=== PATIENT | female | born 1940 | race Caucasian/White ===

== ENCOUNTER → 2024-10-25 | Outpatient (CLI) | payer OTHER, MEDICAID, SELFPAY ==
[2024-10-25 09:32] LABS: Basophils % (Auto) 1 % (0-2.5); Eosinophils # (Auto) 0.1 Thou/mm3 (0.0-0.5); Eosinophils % (Auto) 2 % (0-10); Hematocrit 30.4 % (36.0-46.0); Immature Granulocytes % (Auto) 1 % (0-0); Immature Granulocytes Auto 0.05 Thou/mm3 (0.00-0.00); Lymphocytes # (Auto) 1.5 Thou/mm3 (1.0-4.8); Lymphocytes % (Auto) 19 % (10-50); Mean Corpuscular HGB Conc 32.9 g/dl (31.0-37.0); Mean Corpuscular Hemoglobin 29.2 pg (25.0-35.0); Mean Corpuscular Volume 89 fL (80-100); Monocytes # (Auto) 0.6 Thou/mm3 (0.0-0.8); Monocytes % (Auto) 8 % (0-12); Neutrophils # (Auto) 5.5 Thou/mm3 (1.8-7.7); Neutrophils % (Auto) 70 % (37-80); Nucleated Red Blood Cell % 0 /100 WBC (0); Platelet Count 186 Thou/mm3 (140-440); RDW Standard Deviation 45.5 fL (36.4-46.3); Red Blood Count 3.42 Miln/mm3 (4.00-5.20); White Blood Count 7.8 Thou/mm3 (3.6-11.0)
[2024-10-25 09:39] LABS: Glucose Estimated Average 103 mg/dL (80-131); Hemoglobin A1C 5.2 % Hgb (4.8-6.0)
[2024-10-25 09:53] LABS: Vitamin D 25 Hydroxy Total 48.9 ng/mL (7.3-40.2)
[2024-10-25 09:57] LABS: Alanine Aminotransferase 11 U/L (10-49); Albumin, Serum 3.7 gm/dL (3.4-4.8); Albumin/Globulin Ratio 1.3 (1.2-2.2); Alkaline Phosphatase 89 U/L (46-116); Anion Gap 12 (7-16); Aspartate Amino Transferase 20 U/L (0-34); BUN/Creatinine Ratio 15 Ratio (12-20); Bilirubin,Total 0.3 mg/dL (0.3-1.2); Blood Urea Nitrogen 34 mg/dL (9-23); Calcium 8.3 mg/dL (8.3-10.6); Calcium (Corrected) 8.5 mg/dL (8.5-10.1); Carbon Dioxide 20.6 mMol/L (20.0-31.0); Cardiac Risk Estimate 3.1 RATIO (3.7-5.6); Chloride 106 mMol/L (98-107); Cholesterol 132 mg/dL (132-200); Creatinine (Component) 2.3 mg/dL (0.6-1.3); Free T4 (Free Thyroxine) 1.35 ng/dL (0.89-1.76); Globulin 2.8 gm/dL (2.3-3.5); Glucose 104 mg/dL (74-106); HDL Cholesterol 42 mg/dL (40-60); LDL Cholesterol,Calculated 61 mg/dL (0-130); Osmolality,Calculated 285 (275-295); Potassium 4.4 mMol/L (3.4-5.1); Sodium 139 mMol/L (136-145); Total Protein 6.5 gm/dL (5.7-8.2); Triglycerides 143 mg/dL (30-150); eGFR 20 See Note
== END | disposition home or self-care (01) ==
PROVIDERS: PCP Internal Medicine; Referring Provider Internal Medicine; Visit Provider Internal Medicine
DX: Z00.00 Encounter for general adult medical examination without abnormal findings (principal); E55.9 Vitamin D deficiency, unspecified
CPT/HCPCS: 36415; 80053; 80061; 82306; 83036; 84439; 84443; 85025

== ENCOUNTER → 2025-02-12 | Outpatient (CLI) | payer OTHER, MEDICAID, SELFPAY ==
[2025-02-12 12:21] LABS: Basophils # (Auto) 0.0 Thou/mm3 (0.0-0.2); Basophils % (Auto) 1 % (0-2.5); Eosinophils # (Auto) 0.1 Thou/mm3 (0.0-0.5); Eosinophils % (Auto) 1 % (0-10); Hematocrit 30.2 % (36.0-46.0); Hemoglobin 9.9 g/dL (12.0-16.0); Immature Granulocytes Auto 0.03 Thou/mm3 (0.00-0.00); Lymphocytes # (Auto) 1.2 Thou/mm3 (1.0-4.8); Lymphocytes % (Auto) 17 % (10-50); Mean Corpuscular HGB Conc 32.8 g/dl (31.0-37.0); Mean Corpuscular Hemoglobin 30.2 pg (25.0-35.0); Mean Corpuscular Volume 92 fL (80-100); Monocytes # (Auto) 0.7 Thou/mm3 (0.0-0.8); Monocytes % (Auto) 10 % (0-12); Neutrophils # (Auto) 5.1 Thou/mm3 (1.8-7.7); Neutrophils % (Auto) 72 % (37-80); Nucleated Red Blood Cell # 0.00 Thou/mm3 (0.00-0.00); Nucleated Red Blood Cell % 0 /100 WBC (0); Platelet Count 198 Thou/mm3 (140-440); RDW Standard Deviation 43.2 fL (36.4-46.3); Red Blood Count 3.28 Miln/mm3 (4.00-5.20); White Blood Count 7.2 Thou/mm3 (3.6-11.0)
[2025-02-12 12:37] LABS: Anion Gap 12 (7-16); BUN/Creatinine Ratio 11 Ratio (12-20); Blood Urea Nitrogen 42 mg/dL (9-23); Calcium 9.7 mg/dL (8.3-10.6); Carbon Dioxide 24.3 mMol/L (20.0-31.0); Chloride 100 mMol/L (98-107); Creatinine (Component) 3.9 mg/dL (0.6-1.3); Glucose 114 mg/dL (74-106); Osmolality,Calculated 283 (275-295); Potassium 4.7 mMol/L (3.4-5.1); Sodium 136 mMol/L (136-145); eGFR 11 See Note
[2025-02-12 12:40] LABS: INR 1.0 (0.9-1.3); Partial Thromboplastin Time 27.9 Seconds (22.0-36.0); Prothrombin Time 11.3 Seconds (9.0-12.2)
== END | disposition home or self-care (01) ==
LOC: COPL 11:04
PROVIDERS: PCP Internal Medicine; Referring Provider Internal Medicine; Visit Provider Internal Medicine
DX: I25.10 Atherosclerotic heart disease of native coronary artery without angina pectoris (principal); I48.91 Unspecified atrial fibrillation
CPT/HCPCS: 36415; 80048; 85025; 85610; 85730

== ENCOUNTER 2025-03-23 00:59 | Emergency (ER) | payer OTHER, MEDICAID, SELFPAY ==
[2025-03-23] VITALS (10 sets, daily range): BP systolic 149–213; BP diastolic 55–80; PULSE 65–82; RESP 15–20; TEMP 36.4–36.5; O2SAT 93–100; BMI 31.1
--- NOTE | 2025-03-23 01:33 | EKG_ITS ---
[facility] Test Date: 2025-03-23 Pat Name: EMILIO WISE Department: Room: - Gender: Female Nuclear Physicist: : 1940 Requested By: Andi Campbell Order Number: [id number] Reading MD: Andi Campbell Measurements Intervals [place] Rate: 78 P: 47 [place]: 204 QRS: -66 QRSD: 155 T: 76 QT: 453 QTc: 518 Interpretive Statements ELECTRONIC VENTRICULAR PACEMAKER ABNORMAL RHYTHM ECG Compared to ECG 07/23/2023 11:10:54 No significant changes /store/S0/[id number].pdf
--- NOTE | 2025-03-23 01:59 | EDNOTE_ITS ---
ED Weakness RME/HPI General Chief complaint: Altered Mental Status Stated complaint: ELEVATED BLOOD PRESSURE, WEAKNESS, CONFUSION Time Seen by Provider: 03/23/25 01:59 Arrival date/time: 03/23/25 00:59 RME / HPI RME / HPI Narrative: See MDM for Dr. Page's HPI documentation. Related Data Home Medications ?Medication ?Instructions ?Recorded ?Confirmed atorvastatin 20 mg tablet 20 mg PO HS 07/22/23 5 hydralazine 50 mg tablet 50 mg PO TID 07/22/23 carvedilol 25 mg tablet 25 mg PO BID 07/23/23 clonidine HCl 0.1 mg tablet 0.1 mg PO Q12H PRN hyperte nsive 03/23/25 03/23/25 emergency ferrous sulfate 325 mg (65 mg 325 mg PO QDAY 03/23/25 03/23/25 iron) tablet (Iron (ferrous sulfate)) magnesium 200 mg tablet 400 mg PO QDAY 03/23/2512/10 Previous Rx's ?Medication ?Instructions ?Recorded albuterol sulfate 90 mcg/actuation 2 puff inhalation Q 6H PRN 03/23/25 aerosol inhaler shortness of breath or wheez ing #1 unit cefdinir 300 mg capsule 300 mg PO DAILY 7 days #7 ca ps 03/23/25 clonidine HCl 0.1 mg tablet 0.1 mg PO BID #60 tabs 12/10 omeprazole 40 mg capsule,delayed 40 mg PO QDAY #30 cap s 03/23/25 release ondansetron 4 mg disintegrating 4 mg PO TID PRN nausea and 03/23/25 tablet vomiting 30 days #30 tabs prednisone 50 mg tablet 50 mg PO QDAY #3 tabs Allergies Allergy/AdvReac Type Severity Reaction Status Date / Time codeine Allergy Verified 03/23/25 01:01 Penicillins Allergy Verified 03/23/25 01:01 Review of Systems Review of Systems Systems Reviewed: All systems reviewed, normal except as documented Past Medical History Past Medical History CARDIAC: Positive Hypercholesterolemia and Hypertension; Negative Congestive Heart Failure RESPIRATORY: Negative Chronic Obstructive Pulmonary Disease (COPD) GENITOURINARY: Negative Renal Disease ENDOCRINE: Negative Diabetes Mellitus Type 1 or Diabetes Mellitus Type 2 Surgical History SURGICAL: Positive Open Heart Surgery, Valve Replacement and Carotid Endarterectomy Social History SMOKING STATUS: Never smoker SUBSTANCE USE: does not use ED Exam Narrative Physical exam: See [facility] for Dr. Page's physical exam documentation. Course Quality Measures none Orders Category Date Time Status Bedside COVID-19 Antigen Test NOW Care 03/23/25 02:17 Completed Bedside Influenza A&B Antigen Test NOW Care 03/23/25 02:17 Completed EKG (ED ONLY) *Do not use* NOW Care 03/23/25 01:33 Completed Saline [Insert IV] NOW Care 03/23/25 02:17 Completed Straight [In and Out Catheter] X1 Care 03/23/25 02:17 Completed Referral Respiratory Therapy Stat Cons 03/23/25 04:[address] chest abdomen pelvis wo Stat Exams 03/23/25 02:[address] head/brain wo con Stat Exams 03/23/25 02:20 Completed EKG (ED Only) Stat Exams 03/23/25 01:33 Draft US abdomen limited Stat Exams 03/23/25 02:20 Completed XR chest 1V portable Stat Exams 03/23/25 02:19 Completed Amylase Stat Lab 03/23/25 02:48 Completed BNP [B-Type Natriuretic Peptide] Stat Lab 03/23/25 02:48 Completed Beta Hydroxybutyrate Stat Lab 03/23/25 02:48 Completed Bilirubin,Direct Stat Lab 03/23/25 02:48 Completed Blood Culture (Lab) Stat Lab 03/23/25 02:48 Results CBC Stat Lab 03/23/25 02:48 Completed CMP [Comprehensive Metabolic Panel] Stat Lab 03/23/25 02:48 Completed CRP [C-Reactive Protein] Stat Lab 03/23/25 02:48 Completed ESR [Sed Rate (ESR)] Stat Lab 03/23/25 02:48 Completed Lactate (Lactic Acid) Stat Lab 03/23/25 02:48 Completed Lipase Stat Lab 03/23/25 02:48 Completed Magnesium Stat Lab 03/23/25 02:48 Completed Procalcitonin Stat Lab 03/23/25 02:48 Completed TSH [Thyroid Stimulating Hormone] Stat Lab 03/23/25 02:48 Completed Troponin I Stat Lab 03/23/25 02:48 Completed UA, C/S IF [Urinalysis, C/S if Indicated] Stat Lab 03/23/25 04:15 Completed Albuterol/Ipratr Rt Elaine [Duoneb Rt Elaine] Med 03/23/25 04:50 Discontinued 3 ml INH X1 ONE Azithromycin Po [Zithromax PO] Med 03/23/25 04:50 Discontinued 500 mg PO X1 ONE Magnesium Sulfate 2 GM Ivpb [Magnesium Sulfate Ivpb] Med 03/23/25 04:41 Discontinued 2 gm in 50 ml IV X1 MethylPREDNISolone.* [SoluMEDROL Inj] Med 03/23/25 04:50 Discontinued 125 mg IVP X1 ONE Metoprolol Tartrate [Lopressor] Med 03/23/25 02:02 Discontinued 25 mg PO X1 ONE Ondansetron Inj [Zofran Inj] Med 03/23/25 02:19 Discontinued 4 mg IVP X1 ONE Sodium Chloride 0.9% 1000 ml [Ns] 1,000 ml Med 03/23/25 02:19 Discontinued IV 999 mls/hr cefTRIAXone/D5w 1gm IV premix [Rocephin/D5w 1gm IV Med 03/23/25 04:50 Discontinued premix] 1 gm in 50 ml IV X1 cloNIDine HCL [Catapres] Med 03/23/25 02:02 Discontinued 0.1 mg PO X1 ONE cloNIDine HCL [Catapres] Med 03/23/25 02:34 Discontinued 0.2 mg PO X1 ONE Vital Signs Vital signs: Vital Signs Temperature 97.5 F 03/23/25 01:17 Pulse Rate 80 03/23/25 01:17 Respiratory Rate 17 03/23/25 01:17 Blood Pressure 188/71 H 03/23/25 01:17 Pulse Oximetry (%) 97 03/23/25 01:17 Oxygen Delivery Method Room Air 03/23/25 01:17 Weakness MDM Narrative MDM Narrative:: This section includes all my notes and documentations, including HPI, PE, and ED course. Andi Page MD HPI: 84yo female here with generalized weakness, decreased appetite, nausea, and diarrhea for the last few days. With high BP today. No vomiting. No other complaints reported. ROS: All negative except as documented in HPI. Physical Exam: General: Alert and oriented. No acute distress when remaining still. Eyes: Conjunctivae and lids clear. PERRL. EOMI. ENT: No nasal congestion. Neck: Supple. Heart: RRR. Lungs: No respiratory distress. Good air movement. No rhonchi, wheezing, rales. Abdomen: Soft and nontender. Normal bowel sounds. No distension. No rebound or guarding. Back: No CVA tenderness. Skin: Warm and dry. Neuro: Alert and oriented X 3. No peripheral motor deficits. Cranial nerves II to XII grossly normal. I reviewed all diagnostic test results. My interpretation of the EKG is paced rhythm with no ST-T changes. My interpretation of the chest x-ray is infiltrates. My review of the abdominal ultrasound report is NAD. My review of the CT head report is NAD. My review of the CT chest abdomen pelvis report is pneumonia. Blood tests remarkable for ESR 55, Na 125, Creatinine 2.5, Mg 1.5, Troponin 0.084, CRP 1.5, BNP 354, Lipase 140. COVID/Influenza negative. At this point, diagnoses include: Pneumonia Hypertensive urgency Hypomagnesemia. Treatment here included: Clonidine Metoprolol Solumedrol Zofran IV fluid Azithromycin Duoneb Magnesium Rocephin Significant improvement noted. Recommend outpatient management. Based on my best medical judgment, made decision no further evaluation or treatment indicated at this time. [facility] understands and [facility] customized and printed, see below. Discharge Instructions from Dr. Page printed for you: 1. After extensive evaluation, there is no life-threatening condition. Such stroke or brain tumor or heart attack. 2. For high BP until you see your doctor: Take Clonidine 0.1 mg pill(s) every 12 hours as needed based on SBP (higher number of BP). SBP > 140, take one pill. SBP > 160, take two pills. SBP > 180, take three pills. SBP > 200, take four pills. 3. For pneumonia: --No physical exertion for 3 days to help rest the lungs. Then increase physical activity every day. Prolonged inactivity is terrible for the body. ?No smoking or exposure to smoking or pets or dust or humidity. --Zithromax and cefdinir to kill the germs causing the pneumonia. --Prednisone to help decrease inflammation in the lungs. --Albuterol 2 puffs every 4-6 hours today to help keep the airways open. Then as needed for cough or shortness of breath. 4. Take omeprazole again since it helped you eat in the past. Zofran for nausea/vomiting. 5. See your doctor on 03/26/2025 for recheck and further care. Ask to review all test results and official radiology reports, to make sure you receive all necessary follow-ups and monitoring. Ask for help until you are completely better. 6. Seek immediate medical care with worsening or with any concerns. Andi Page MD Patient data External records reviewed:: [facility] previous records (Per chart review, patient was admitted here on 07/22/23 for Mobitz type 2 second degree heart block.) Clinical information provided by:: patient Social determinants that could affect healthcare access:: none Patient has the following chronic illnesses:: HTN, HLD, valve replacement How is presenting disease/condition affected by chronic disease/condition?: u neffected by Evaluation data The following diagnostics were reviewed and interpreted by me:: lab results, radiology exam(s) and EKG tracing(s) (My interpretation of the EKG: Paced rhythm (78 bpm) with no ST-T changes. Andi Page MD) Lab and/or radiology exams considered but not ordered:: none Interpretation Summary: I reviewed all diagnostic test results. My interpretation of the EKG is paced rhythm with no ST-T changes. My interpretation of the chest x-ray is infiltrates. My review of the abdominal ultrasound report is NAD. My review of the CT head report is NAD. My review of the CT chest abdomen pelvis report is pneumonia. Blood tests remarkable for ESR 55, Na 125, Creatinine 2.5, Mg 1.5, Troponin 0.084, CRP 1.5, BNP 354, Lipase 140. COVID/Influenza negative. Medications / Prescriptions Medications or Prescriptions considered but not ordered:: none Medication administrations:: Medication Administration History Discontinued Medications Albuterol/Ipratropium (Albuterol/Ipratropium (Duoneb) Rt Elaine 3 Ml Nebu) 3 ml INH X1 ONE Stop: 03/23/25 04:51 Last Admin: 03/23/25 05:08 Dose: 3 ml Documented By: PHU Azithromycin (Azithromycin 250 Mg Tablet) 500 mg PO X1 ONE Stop: 03/23/25 04:51 Last Admin: 03/23/25 04:56 Dose: 500 mg Documented By: CELSO Clonidine (Clonidine Hcl 0.1 Mg Tablet) 0.1 mg PO X1 ONE Stop: 03/23/25 02:03 Last Admin: 03/23/25 02:17 Dose: 0.1 mg Documented By: JULI Clonidine (Clonidine Hcl 0.1 Mg Tablet) 0.2 mg PO X1 ONE Stop: 03/23/25 02:35 Last Admin: 03/23/25 04:07 Dose: Not Given Documented By: CELSO Non-Admin Reason: Discontinued Sodium Chloride (Ns) 1,000 mls @ 999 mls/hr IV .Q1H1M ONE Stop: 03/23/25 03:19 Last Infusion: 03/23/25 05:45 Dose: Infused Documented By: Admin: 03/23/25 02:50 Dose: 999 mls/hr Documented By: CELSO Magnesium Sulfate (Magnesium Sulfate Ivpb) 2 gm in 50 mls @ 25 mls/hr IV X1 ONE Stop: 03/23/25 06:40 Last Infusion: 03/23/25 06:46 Dose: Infused Documented By: Admin: 03/23/25 04:58 Dose: 25 mls/hr Documented By: CELSO Ceftriaxone Sodium/Dextrose (Rocephin/D5w 1gm Iv Premix) 1 gm in 50 mls @ 100 mls/hr IV X1 ONE Stop: 03/23/25 05:19 Last Infusion: 03/23/25 06:01 Dose: Infused Documented By: Admin: 03/23/25 05:31 Dose: 100 mls/hr Documented By: CELSO Methylprednisolone Sodium Succinate (Methylprednisolone Sod Succ 62.5 Mg/Ml 2ml Vial) 125 mg IVP X1 ONE Stop: 03/23/25 04:51 Last Admin: 03/23/25 04:57 Dose: 125 mg Documented By: CELSO Metoprolol Tartrate (Metoprolol Tartrate 25 Mg Tablet) 25 mg PO X1 ONE Stop: 03/23/25 02:03 Last Admin: 03/23/25 02:19 Dose: 25 mg Documented By: JULI Ondansetron HCl (Ondansetron Inj 2 Mg/Ml Inj 2 Ml) 4 mg IVP X1 ONE; Protocol Stop: 03/23/25 02:20 Last Admin: 03/23/25 02:54 Dose: 4 mg Documented By: CELSO Clonidine, Metoprolol, Solumedrol, Zofran, IV fluid, Azithromycin, Duoneb, Magnesium, Rocephin Consultations Consultation(s) initiated? (list below): No Diagnosis Weakness Differential Diagnosis: sepsis, dehydration and other (pneumonia, UTI, COVID, Influenza, viral syndrome) Most likely diagnosis given after review of the tests above:: Pneumonia, Hypertensive urgency, Hypomagnesemia. Admission Indicated Admission indicated?: not indicated Explain why admission is indicated or not indicated:: With significant improvement and no condition needing emergent intervention, there was no indication for admission. Admission Request Was there a request for admission?: No Disposition Plan Disposition Plan: Discharge Discharge Attestation Discharge Attestation: The patient and all family members were given an opportunity to ask questions and understood the discharge instructions. Discharge instructions specifically effects, indications for sooner follow up or return to the emergency department, and the expected course of current diagnosis. Patient condition: Stable Discharge Plan Plan Patient Disposition: HOME (Self Care) Prescriptions/Referrals Prescriptions/Med Rec: New omeprazole 40 mg capsule,delayed release(DR/EC) 40 mg PO QDAY Qty: 30 0RF prednisone 50 mg tablet 50 mg PO QDAY Qty: 3 0RF albuterol sulfate 90 mcg/actuation HFA aerosol inhaler 2 puff inhalation Q6H PRN (Reason: shortness of breath or wheezing) Qty: 1 0RF cefdinir 300 mg capsule 300 mg PO DAILY 7 Days Qty: 7 0RF clonidine HCl 0.1 mg tablet 0.1 mg PO BID Qty: 60 0RF ondansetron 4 mg tablet,disintegrating 4 mg PO TID PRN (Reason: nausea and vomiting) 30 Days Qty: 30 0RF No Action atorvastatin 20 mg tablet 20 mg PO HS hydralazine 50 mg tablet 50 mg PO TID Rx Instructions: 50mg in am 100mg HS carvedilol 25 mg tablet 25 mg PO BID magnesium 200 mg tablet 400 mg PO QDAY clonidine HCl 0.1 mg tablet 0.1 mg PO Q12H PRN (Reason: hypertensive emergency) ferrous sulfate [Iron (ferrous sulfate)] 325 mg (65 mg iron) tablet 325 mg PO QDAY Referrals: Zia Bey MD [Primary Care Provider, Internal Medicine] - In 1 week Problem List Clinical Impression: Pneumonia, Hypertensive urgency Patient/Caregiver Discharge Instructions Discharge Activity: activity as tolerated Education Materials: ED Hypertension, Established, ED Pneumonia (Adult) Additional Instructions: Discharge Instructions from Dr. Page printed for you: 1. After extensive evaluation, there is no life-threatening condition. Such stroke or brain tumor or heart attack. 2. For high BP until you see your doctor: Take Clonidine 0.1 mg pill(s) every 12 hours as needed based on SBP (higher number of BP). SBP > 140, take one pill. SBP > 160, take two pills. SBP > 180, take three pills. SBP > 200, take four pills. 3. For pneumonia: --No physical exertion for 3 days to help rest the lungs. Then increase physical activity every day. Prolonged inactivity is terrible for the body. ?No smoking or exposure to smoking or pets or dust or humidity. --Zithromax and cefdinir to kill the germs causing the pneumonia. --Prednisone to help decrease inflammation in the lungs. --Albuterol 2 puffs every 4-6 hours today to help keep the airways open. Then as needed for cough or shortness of breath. 4. Take omeprazole again since it helped you eat in the past. Zofran for nausea/vomiting. 5. See your doctor on 03/26/2025 for recheck and further care. Ask to review all test results and official radiology reports, to make sure you receive all necessary follow-ups and monitoring. Ask for help until you are completely better. 6. Seek immediate medical care with worsening or with any concerns. Print Language: Albanian Stand Alone Forms: [employer] Award Info., Patient Portal Info Letter
[2025-03-23] MEDS: METOPROLOL TARTRATE 25 MG TABLET PO (02:19)
--- NOTE | 2025-03-23 02:19 | XR_ITS ---
Examination: AP chest single view Technique one AP portable upright chest single view Date and time: March 23, 2025, 0332 hrs., Comparison July 23, 2023 Indications: Shortness of breath today. Findings: The film is rotated LPO Aortic valve satisfactory position Transvenous dual-chamber bipolar cardiac leads satisfactory position Prominent vascular congestion No lobar pneumonia Severe osteopenia Impression: Mild heart failure
--- NOTE | 2025-03-23 02:20 | XR_ITS ---
Examination: CT chest, without intravenous contrast. CT abdomen, without intravenous contrast. CT pelvis, without intravenous contrast. 2-D sagittal and coronal reconstructions. 3-D reconstructions. Date and time of exam:March 23, 2025 0235 hrs. Indications: Chest pain shortness of breath abdominal pain and nausea CTDI vol (mgy) 9.89 DLP (MGycm)679 Technique: Multiple CT images, 3.0 mm slice thickness, obtained chest, abdomen, pelvis, with the high-resolution 64 slice scanner.. Sagittal and coronal 2-D reconstructions are obtained. 3-D reconstructions Low dose protocols were performed. One or more of the following dose reduction techniques were used; automated exposure control, adjustment of the mA and/or KV according to patient size, use of iterative reconstruction technique. Findings: Thoracic aortic calcification no aneurysmal dilatation Pulmonary artery segments are not enlarged Mild enlargement cardiac contour Prominent mitral valvular calcification. Diffuse opacity throughout the lung hernandez which may represent restrictive airways disease, versus subtle diffuse pneumonia or pulmonary edema Mildly enlarged cardiac contour Mucosal thickening in the stomach No focal liver or splenic lesions Suspicious for small gallstones. No pancreatic mass Nodular thickening left adrenal gland Bilateral renal cysts, the largest 3 cm in the posterior right kidney Renal cortical thinning No bowel obstruction Normal appendix Heavy abdominal aortic calcification, severe calcification origin of the renal arteries as well as origin of the superior mesenteric artery No bowel obstruction or diverticulitis Atrophic uterus No urinary bladder mass Impression: Suspicious for diffuse pneumonia versus subtle pulmonary edema Suspicious for gastritis Recommend hepatobiliary sonography to assess for small gallstones. Severe calcification of the renal artery origins with atrophic kidneys, consider renal Doppler sonography follow-up to confirm significant renal artery stenosis No bowel obstruction
--- NOTE | 2025-03-23 02:20 | XR_ITS ---
Examination: CT brain head without contrast. 2-D sagittal coronal reconstructions Date and time of exam:March 23, 2025, 0233 hrs. Indications: Hypertension with onset confusion and weakness today. CTDI: vol (mGy):42.20 DLP: (mGycm):880 Technique: Multiple CT axial sections of the brain have been obtained, 5 mm slice thickness. Contrast has not been administered. 2-D sagittal, coronal reconstructions have been obtained Low dose protocols were performed. One or more of the following dose reduction techniques were used; automated exposure control, adjustment of the mA and/or KV according to patient size, use of iterative reconstruction technique. Findings: No significant ventricular enlargement. Intra-axial or extra-axial hemorrhage density is not seen. No mass effect or midline shift Basal cisterns are not remarkable. Fourth ventricle is midline. Cranial vault intact. Impression: Negative for acute hemorrhage, mass effect or midline shift Advise clinical correlation follow-up accordingly
--- NOTE | 2025-03-23 02:20 | XR_ITS ---
Examination: Abdomen sonogram, Limited Date and time of exam: March 23, 2025, 0355 hrs. Indications: Nausea beginning 10 days ago. Technique: Real-time dodson scale transabdominal sonographic images of the upper abdomen obtained. Findings: Normal gallbladder. Normal common bile duct 0.3 cm. Pancreatic head 3.1 cm Liver 13.8 cm fatty infiltration Normal hepatopedal portal venous flow Patent IVC 90 mm renal cyst Impression: Normal gallbladder Normal common bile duct
[2025-03-23] MEDS: SODIUM CHLORIDE 0.9% 1000 ML 1,000 ML 999 ML IV (02:50)
[2025-03-23] MEDS: ONDANSETRON INJ 2 MG/ML INJ 2 ML 4 MG IVP (02:54)
[2025-03-23 03:00] LABS: Lactate (Lactic Acid) 1.0 mMol/L (0.4-2.0)
[2025-03-23 03:03] LABS: Beta Hydroxybutyrate 0.2 mmol/L (<0.6)
--- NOTE | 2025-03-23 03:04 | PC.NURSE ---
clonidine 0.2mg on hold systolic b/p 145, Dr. Page notified and agreed
[2025-03-23 03:06] LABS: Sed Rate (ESR) 55 mm/hr (0-30)
[2025-03-23 03:08] LABS: Basophils # (Auto) 0.0 Thou/mm3 (0.0-0.2); Basophils % (Auto) 0 % (0-2.5); Eosinophils # (Auto) 0.1 Thou/mm3 (0.0-0.5); Eosinophils % (Auto) 1 % (0-10); Hematocrit 31.6 % (36.0-46.0); Hemoglobin 10.5 g/dL (12.0-16.0); Immature Granulocytes Auto 0.11 Thou/mm3 (0.00-0.00); Lymphocytes # (Auto) 1.4 Thou/mm3 (1.0-4.8); Lymphocytes % (Auto) 13 % (10-50); Mean Corpuscular HGB Conc 33.2 g/dl (31.0-37.0); Mean Corpuscular Hemoglobin 29.0 pg (25.0-35.0); Mean Corpuscular Volume 87 fL (80-100); Monocytes # (Auto) 0.9 Thou/mm3 (0.0-0.8); Monocytes % (Auto) 8 % (0-12); Neutrophils # (Auto) 8.4 Thou/mm3 (1.8-7.7); Neutrophils % (Auto) 77 % (37-80); Nucleated Red Blood Cell # 0.00 Thou/mm3 (0.00-0.00); Nucleated Red Blood Cell % 0 /100 WBC (0); Platelet Count 256 Thou/mm3 (140-440); RDW Standard Deviation 40.6 fL (36.4-46.3); Red Blood Count 3.62 Miln/mm3 (4.00-5.20); White Blood Count 11.0 Thou/mm3 (3.6-11.0)
--- NOTE | 2025-03-23 03:11 | PRELIM_ITS ---
CT scan of the head without intravenous contrast (axial sections with sagittal and coronal reformats) March 23, 2025 0233 hours Clinical history: Weakness Comparison: No prior study is available for comparison. Findings: There is no evidence of intracranial hemorrhage, mass effect or midline shift. 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 There are periventricular white matter hypodensities, compatible with chronic small vessel ischemia. No definitive wedge shaped acute infarcts are detected. Please note that subtle early infarcts are better assessed using diffusion weighted MR imaging if clinically indicated. There is atheromatous calcification of the intracranial arteries. There is mild volume loss. The calvarium is unremarkable. The mastoid air cells and the visualized paranasal sinuses are clear. Impression: No evidence of intracranial hemorrhage, mass effect or midline shift. If there are persistent clinical symptoms or additional clinical concerns consider an MRI. Generalized cerebral atrophy and chronic small vessel ischemic change with chronic infarct as described above. Report Electronically Signed By: Remi Samuel 03/23/2025 3:10:57 AM [EST]
[2025-03-23 03:19] LABS: B-Type Natriuretic Peptide 354 pg/mL (0-100)
[2025-03-23 03:40] LABS: Alanine Aminotransferase 19 U/L (10-49); Albumin, Serum 3.8 gm/dL (3.4-4.8); Albumin/Globulin Ratio 1.3 (1.2-2.2); Alkaline Phosphatase 96 U/L (46-116); Amylase 158 U/L (30-118); Anion Gap 13 (7-16); Aspartate Amino Transferase 38 U/L (0-34); BUN/Creatinine Ratio 15 Ratio (12-20); Bilirubin,Direct 0.2 mg/dL (0.0-0.3); Bilirubin,Total 0.3 mg/dL (0.3-1.2); Blood Urea Nitrogen 37 mg/dL (9-23); C-Reactive Protein 1.5 mg/dL (0.0-0.9); Calcium 9.0 mg/dL (8.3-10.6); Calcium (Corrected) 9.2 mg/dL (8.5-10.1); Carbon Dioxide 17.7 mMol/L (20.0-31.0); Chloride 94 mMol/L (98-107); Creatinine (Component) 2.5 mg/dL (0.6-1.3); Estimated Creatinine Clearance 13.0 mL/min (>60); Globulin 3.0 gm/dL (2.3-3.5); Glucose 121 mg/dL (74-106); Lipase 140 U/L (12-53); Magnesium 1.5 mg/dL (1.6-2.6); Osmolality,Calculated 261 (275-295); Potassium 4.4 mMol/L (3.4-5.1); Procalcitonin 0.09 ng/ml (0.0-0.49); Sodium 125 mMol/L (136-145); Thyroid Stimulating Hormone 0.89 uIU/mL (0.55-4.78); Total Protein 6.8 gm/dL (5.7-8.2); eGFR 18 See Note
[2025-03-23 03:43] LABS: Troponin I 0.084 ng/mL (0.0-0.045)
--- NOTE | 2025-03-23 03:54 | PRELIM_ITS ---
CT scan of the chest, abdomen and pelvis without intravenous contrast (axial sections with sagittal and coronal reformats) March 23, 2025 0235 hours Clinical History: Shortness of breath, abdominal pain, nausea. Findings: There is mosaic attenuation in the lungs. There is mild interstitial septal thickening and peribronchial thickening in the lungs. Subtle subpleural reticulonodular opacities are noted in the right upper lobe. There is peribronchial soft tissue thickening in bilateral lungs, consistent with chronic airways disease. There is no pleural effusion or pneumothorax. The thoracic aorta demonstrates atheromatous calcification without evidence of aneurysm. No evidence of mediastinal mass or lymphadenopathy. There are dense calcifications in the aortic ring and in the mitral valve. There are also calcifications of the coronary artery. There is no pericardial effusion. A cardiac pacemaker is identified in the left chest wall with its lead tips in the right atrium and ventricle respectively. Dependent hyperdensities are identified within the gallbladder, which may represent sludge versus calculi. There is mild nodular thickening of the left adrenal gland. There are bilateral renal cortical cysts, the largest measuring 2.9 x 2.6 cm in the right kidney. Atrophic changes are seen in bilateral kidneys. Nonspecific perinephric fat stranding is noted bilaterally. The liver, spleen, pancreas and right adrenal are unremarkable on this noncontrast study. No evidence of bowel obstruction. The appendix is within normal limits (axial images [id number]). There is prominent intraluminal fat density in the cecum; possibility of a lipoma cannot be excluded. There is thickening versus underdistention of the proximal body of the stomach. The abdominal aorta and its branches demonstrate atheromatous calcification without evidence of aneurysm. There is severe stenosis versus occlusion of the bilateral proximal renal arteries due to dense calcified atherosclerotic plaque. 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 The uterus and adnexa are unremarkable. There is no free fluid or free air. The bones are osteopenic. Degenerative changes are identified in the spine. Median sternotomy wires are identified. There is grade I degenerative anterolisthesis of L4 over L5. There is a chronic superior endplate deformity of the L3 vertebral body. Please note that evaluation of soft tissue/vascular structures and bowel loops is limited due to absence of IV and oral contrast. Impression: 1. Mosaic attenuation in the lungs, with mildly tissue septal thickening and peribronchial thickening, which may represent small airways disease/chronic airways disease superimposed with interstitial pulmonary edema. 2. Subtle subpleural reticulonodular opacities in the right upper lobe, which may be of infectious, inflammatory or granulomatous etiology. 3. Peribronchial soft tissue thickening in bilateral lungs, consistent with chronic airways disease. 4. No evidence of bowel obstruction. 5. Thickening versus underdistention of the proximal body of the stomach; possibility of gastritis cannot be excluded. 6. Severe stenosis versus occlusion of the bilateral proximal renal arteries due to dense calcified atherosclerotic plaque; atrophic changes in bilateral kidneys. 7. 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 Other findings as described above. Suggest clinical correlation and follow up accordingly. Report Electronically Signed By: Remi Samuel 03/23/2025 3:53:45 AM [EST]
[2025-03-23 04:25] LABS: Collection Type, Urine Clean Catch
[2025-03-23 04:35] LABS: Bacteria,Urine Rare; Bilirubin,Urine Negative (Negative); Blood,Urine Negative (Negative); Clarity,Urine Clear (Clear/Hazy); Color,Urine Lt-Yellow (Lt Yel-Yel); Culture Indicated,Urine Not Indicated; Glucose, Urine Negative (Negative); Hyaline Casts,Urine < 1 /hpf (0-1); Ketones,Urine Negative (Negative); Leukocyte Esterase,Urine Negative (Negative); Nitrite,Urine Negative (Negative); PH,Urine 6.0 (5.0-7.0); Protein,Urine 1+ (Neg - Trace); RBC,Urine 2 /hpf (0-3); Specific Gravity,Urine 1.012 (1.001-1.035); Squamous Epithelial Cell,Urine 4 /hpf (0-5); Urobilinogen,Urine Negative mg/dL (0.0-1.0); WBC,Urine 1 /hpf (0-5)
--- NOTE | 2025-03-23 04:37 | PRELIM_ITS ---
Right upper quadrant abdominal ultrasound. March 23, 2025 at 0355 hours Clinical history: Abdominal pain and nausea. Technique: Grayscale and color flow images of the right upper quadrant are provided. Hepatic and portal veins were also imaged with color flow images. Comparison: No prior study is available for comparison. Findings: The liver is normal in echogenicity and measures 13.8 cm in length. No focal hepatic lesion or intrahepatic biliary ductal dilatation is seen. The gallbladder wall is normal in thickness, measuring 3 mm. No gallstones, sludge, or pericholecystic fluid are identified. The common bile duct is normal in calibre, measuring 3.1 mm. The pancreas appears normal in size with the head measuring 3.1 cm, body 1.2 cm, and tail 1.8 cm; no focal lesion is identified. The main portal vein diameter measures 8 mm with normal appearance. The right kidney measures approximately 1.7 x 1.7 x 1.9 cm cortical cyst in the mid zone, consistent with a simple renal cyst. No hydronephrosis is noted. Impression: Unremarkable right upper quadrant ultrasound. Incidental finding: Simple right renal cortical cyst (1.9 cm). No hydronephrosis. Report Electronically Signed By: Leighton Ortez 03/23/2025 4:37:13 AM [EST]
[2025-03-23] MEDS: AZITHROMYCIN 250 MG TABLET 500 MG PO (04:56)
[2025-03-23] MEDS: MethylPREDNISolone SOD SUCC 62.5 MG/ML 2ML VIAL 125 MG IVP (04:57)
[2025-03-23] MEDS: Magnesium Sulfate 2 GM Ivpb 2 GM/50 ML BAG IV (04:58)
[2025-03-23] MEDS: ALBUTEROL/IPRATROPIUM (Duoneb) RT SOL 3 ML NEBU INH (05:08)
[2025-03-23] MEDS: cefTRIAXone/D5w 1gm IV premix 1 GM/50 ML BAG IV (05:31)
== END 2025-03-23 06:49 | disposition home or self-care (01) ==
PROVIDERS: Emergency Provider Emergency Medicine; PCP Internal Medicine
DX: J18.9 Pneumonia, unspecified organism (principal); I16.0 Hypertensive urgency; E83.42 Hypomagnesemia; I10 Essential (primary) hypertension; E78.00 Pure hypercholesterolemia, unspecified; Z95.2 Presence of prosthetic heart valve; Z79.899 Other long term (current) drug therapy; Z88.5 Allergy status to narcotic agent; Z88.0 Allergy status to penicillin
CPT/HCPCS: 36415; 70450; 71045; 71250; 74176; 76705; 80053; 81001; 82010; 82150; 82248; 83605; 83690; 83735; 83880; 84145; 84443; 84484; 85025; 85652; 86140; 87040; 87400; 87811; 93005; 94640; 96365; 96366; 96375; 99284; A9270; J0696; J2405; J2919; J3475; J7030

== ENCOUNTER → 2025-04-24 | Outpatient (CLI) | payer OTHER, MEDICAID, SELFPAY ==
--- NOTE | 2025-04-24 12:14 | XR_ITS ---
Examination: Retroperitoneal ultrasound, complete Technique: Multiple high resolution grayscale images of the retroperitoneum obtained, including kidneys and bladder. Exam date and time: April 24, 2025 at 1221 hours INDICATIONS: Renal insufficiency and laboratory examination 03/26/2025 FINDINGS: Right kidney 6.3 cm renal cortex 1.0 cm Multiple cysts, the largest upper pole 31 mm Left kidney 7.6 cm renal cortex 0.8 cm 20 mm medial cyst No hydronephrosis Contracted urinary bladder IMPRESSION: Small kidneys with bilateral renal cortical thinning
[2025-04-24 13:03] LABS: Collection Type, Urine Clean Catch
[2025-04-24 13:14] LABS: Basophils # (Auto) 0.1 Thou/mm3 (0.0-0.2); Basophils % (Auto) 1 % (0-2.5); Eosinophils # (Auto) 0.1 Thou/mm3 (0.0-0.5); Eosinophils % (Auto) 1 % (0-10); Hematocrit 31.5 % (36.0-46.0); Hemoglobin 9.9 g/dL (12.0-16.0); Immature Granulocytes Auto 0.10 Thou/mm3 (0.00-0.00); Lymphocytes # (Auto) 2.1 Thou/mm3 (1.0-4.8); Lymphocytes % (Auto) 22 % (10-50); Mean Corpuscular HGB Conc 31.4 g/dl (31.0-37.0); Mean Corpuscular Hemoglobin 28.9 pg (25.0-35.0); Mean Corpuscular Volume 92 fL (80-100); Monocytes # (Auto) 0.7 Thou/mm3 (0.0-0.8); Monocytes % (Auto) 7 % (0-12); Neutrophils # (Auto) 6.2 Thou/mm3 (1.8-7.7); Neutrophils % (Auto) 68 % (37-80); Nucleated Red Blood Cell # 0.00 Thou/mm3 (0.00-0.00); Nucleated Red Blood Cell % 0 /100 WBC (0); Platelet Count 190 Thou/mm3 (140-440); RDW Standard Deviation 48.5 fL (36.4-46.3); Red Blood Count 3.42 Miln/mm3 (4.00-5.20); White Blood Count 9.2 Thou/mm3 (3.6-11.0)
[2025-04-24 13:31] LABS: Albumin, Serum 3.6 gm/dL (3.4-4.8); Anion Gap 8 (7-16); BUN/Creatinine Ratio 8 Ratio (12-20); Blood Urea Nitrogen 22 mg/dL (9-23); Calcium 8.6 mg/dL (8.3-10.6); Calcium (Corrected) 8.9 mg/dL (8.5-10.1); Carbon Dioxide 23.4 mMol/L (20.0-31.0); Chloride 108 mMol/L (98-107); Creatinine (Component) 2.9 mg/dL (0.6-1.3); Glucose 113 mg/dL (74-106); Osmolality,Calculated 281 (275-295); Parathyroid Hormone Intact 166.4 pg/ml (18.5-88.0); Phosphorous 2.8 mg/dL (2.4-5.1); Potassium 5.4 mMol/L (3.4-5.1); Sodium 139 mMol/L (136-145); Uric Acid 8.2 mg/dL (3.1-7.8); eGFR 15 See Note
[2025-04-24 13:34] LABS: Creatinine MALB Rnd Ur 115 mg/dL (30-125); Microalbumin Creat Ratio 28 mg/gCrea (<30); Microalbumin, Random Urine 32 mg/L (0-300)
[2025-04-24 13:42] LABS: Bilirubin,Urine Negative (Negative); Blood,Urine Negative (Negative); Clarity,Urine Turbid (Clear/Hazy); Color,Urine Yellow (Lt Yel-Yel); Glucose, Urine Negative (Negative); Ketones,Urine Negative (Negative); Leukocyte Esterase,Urine Positive (Negative); Nitrite,Urine Negative (Negative); PH,Urine 6.0 (5.0-7.0); Protein,Urine 1+ (Neg - Trace); RBC,Urine 5 /hpf (0-3); Specific Gravity,Urine 1.017 (1.001-1.035); Squamous Epithelial Cell,Urine 55 /hpf (0-5); Urobilinogen,Urine Negative mg/dL (0.0-1.0); WBC,Urine 9 /hpf (0-5)
== END | disposition home or self-care (01) ==
LOC: CDIM 12:01 → COPL 12:39
PROVIDERS: PCP Internal Medicine; Referring Provider Internal Medicine; Visit Provider Radiology Diagnostic Radiology
DX: N28.89 Other specified disorders of kidney and ureter (principal); N17.9 Acute kidney failure, unspecified; I10 Essential (primary) hypertension
CPT/HCPCS: 36415; 76770; 80069; 81001; 82043; 82570; 83970; 84550; 85025

== ENCOUNTER → 2025-06-25 | Outpatient (CLI) | payer OTHER, MEDICAID, SELFPAY ==
[2025-06-25 10:46] LABS: Collection Type, Urine Clean Catch
[2025-06-25 11:08] LABS: Basophils # (Auto) 0.1 Thou/mm3 (0.0-0.2); Basophils % (Auto) 1 % (0-2.5); Eosinophils # (Auto) 0.1 Thou/mm3 (0.0-0.5); Eosinophils % (Auto) 1 % (0-10); Hematocrit 28.1 % (36.0-46.0); Hemoglobin 9.0 g/dL (12.0-16.0); Immature Granulocytes Auto 0.04 Thou/mm3 (0.00-0.00); Lymphocytes # (Auto) 1.3 Thou/mm3 (1.0-4.8); Lymphocytes % (Auto) 17 % (10-50); Mean Corpuscular HGB Conc 32.0 g/dl (31.0-37.0); Mean Corpuscular Hemoglobin 29.5 pg (25.0-35.0); Mean Corpuscular Volume 92 fL (80-100); Monocytes # (Auto) 0.6 Thou/mm3 (0.0-0.8); Monocytes % (Auto) 8 % (0-12); Neutrophils # (Auto) 5.6 Thou/mm3 (1.8-7.7); Neutrophils % (Auto) 72 % (37-80); Nucleated Red Blood Cell # 0.00 Thou/mm3 (0.00-0.00); Nucleated Red Blood Cell % 0 /100 WBC (0); Platelet Count 179 Thou/mm3 (140-440); RDW Standard Deviation 49.3 fL (36.4-46.3); Red Blood Count 3.05 Miln/mm3 (4.00-5.20); White Blood Count 7.7 Thou/mm3 (3.6-11.0)
[2025-06-25 11:16] LABS: Bilirubin,Urine Negative (Negative); Blood,Urine Negative (Negative); Clarity,Urine Clear (Clear/Hazy); Color,Urine Lt-Yellow (Lt Yel-Yel); Glucose, Urine Negative (Negative); Ketones,Urine Negative (Negative); Leukocyte Esterase,Urine Negative (Negative); Nitrite,Urine Negative (Negative); PH,Urine 6.5 (5.0-7.0); Protein,Urine Trace (Neg - Trace); RBC,Urine 1 /hpf (0-3); Specific Gravity,Urine 1.010 (1.001-1.035); Squamous Epithelial Cell,Urine 3 /hpf (0-5); Urobilinogen,Urine Negative mg/dL (0.0-1.0); WBC,Urine 1 /hpf (0-5)
[2025-06-25 11:42] LABS: Albumin, Serum 4.0 gm/dL (3.4-4.8); Anion Gap 11 (7-16); BUN/Creatinine Ratio 10 Ratio (12-20); Blood Urea Nitrogen 33 mg/dL (9-23); Calcium 9.0 mg/dL (8.3-10.6); Calcium (Corrected) 9.0 mg/dL (8.5-10.1); Carbon Dioxide 23.6 mMol/L (20.0-31.0); Chloride 106 mMol/L (98-107); Creatinine (Component) 3.3 mg/dL (0.6-1.3); Ferritin 251 ng/mL (7.3-270.7); Glucose 107 mg/dL (74-106); Osmolality,Calculated 288 (275-295); Phosphorous 3.7 mg/dL (2.4-5.1); Potassium 4.7 mMol/L (3.4-5.1); Sodium 141 mMol/L (136-145); eGFR 13 See Note
== END | disposition home or self-care (01) ==
LOC: COPL 10:09
PROVIDERS: PCP Internal Medicine; Referring Provider Internal Medicine; Visit Provider Internal Medicine
DX: I12.9 Hypertensive chronic kidney disease with stage 1 through stage 4 chronic kidney disease, or unspecified chronic kidney disease (principal); N17.9 Acute kidney failure, unspecified
CPT/HCPCS: 36415; 80069; 81001; 82728; 85025